=== PATIENT | female | born 1995 | race African-American/Black ===

== ENCOUNTER 2016-12-17 18:38 | Emergency (ER) | payer OTHER ==
[2016-12-17 19:10] VITALS: BP 113/71; PULSE 84; TEMP 98.2; BMI 35.2
--- NOTE | 2016-12-17 19:31 | PDOC ---
History of Present Illness - General Chief Complaint: Back Pain Stated Complaint: BACK PAIN Time Seen by Provider: 12/17/16 19:27 History Source: Patient Exam Limitations: No Limitations - History of Present Illness Initial Comments: CHIEF COMPLAINT: 21 y/o morbidly obese female c/o right sided back pain since yesterday. HISTORY OF PRESENT ILLNESS: The patient states the pain travels from her low back down into her right leg. She has had this before and took flexeril once yesterday and once today. She denies fall, trauma to back, midline back pain, heavy lifting, bowel/bladder incontinence, numbness/tingling in extremities. Vital signs on arrival are within normal limits. REVIEW OF SYSTEMS: GENERAL/CONSTITUTIONAL: No fever/chills. No weakness. No weight change. GASTROINTESTINAL: No abd pain, nausea, vomiting, diarrhea. GENITOURINARY: No dysuria, frequency, or change in urination. MUSCULOSKELETAL: No joint or muscle swelling or pain. No neck pain. +low back pain radiating into leg. SKIN: No rash or easy bruising. NEUROLOGIC: No headache, vertigo, loss of consciousness, or loss of sensation. PHYSICAL EXAM: GENERAL: The patient is awake, alert, and fully oriented, in no acute distress. She is morbidly obese and ambulatory with normal gait. Her movements are slowed secondary to pain. ABDOMEN: Soft, non-distended, non-tender even to deep palpation, no hepatomegaly or splenomegaly, no masses. BACK: No midline lumbar spine TTP or step offs. Pain reproduced with palpation of right lumbar paravertebral muscles, as well as with palpation of right gluteal muscles. EXTREMITIES: Normal range of motion, no edema. NEUROLOGICAL: Normal speech, normal gait. CN II-XII grossly intact. No saddle anesthesia. 2+ LE reflexes b/l. SKIN: Warm, dry, normal turgor, no rashes or lesions noted. Past History - Past Medical History Allergies/Adverse Reactions: Allergies Allergy/AdvReac Type Severity Reaction Status Date / Time No Known Allergies Allergy Verified 12/17/16 19:02 Home Medications: Ambulatory Orders Topiramate [Topamax -] 50 mg PO HS 07/25/15 Albuterol 0.083% Nebulizer Kira [Ventolin 0.083% Nebulizer Soln -] 1 neb NEB Q4H PRN #1 vial 09/03/15 Albuterol Sulfate Inhaler - [Ventolin HFA Inhaler -] 2 inh PO Q4H PRN #1 inhaler 09/03/15 Prednisone [Deltasone] 20 mg PO BID #8 tablet 09/03/15 Azithromycin [Zithromax Z-JAKI (5 DAYS) -] 250 mg PO ASDIR #6 tablet 09/04/15 Asthma: No Cancer: No Cardiac Disorders: No Diabetes: No HTN: No Seizures: No Thyroid Disease: No - Psycho/Social/Smoking Cessation Hx Anxiety: No Suicidal Ideation: No Smoking History: Never smoked Have you smoked in the past 12 months: No Information on smoking cessation initiated: No Hx Alcohol Use: No Drug/Substance Use Hx: No Hx Substance Use Treatment: No *Physical Exam - Vital Signs Last Vital Signs Temp Pulse Resp BP Pulse Ox 98.2 F 84 14 113/71 100 12/17/16 19:02 12/17/16 19:02 12/17/16 19:02 12/17/16 19:02 12/17/16 19:02 Medical Decision Making - Medical Decision Making A/P: 21 y/o female with right sided sciatica. Encouraged the patient to take 800mg of Motrin with her flexeril every 8 hours. Informed her the flexeril may cause her to be drowsy. Demonstrated a few stretching exercises she should do hourly at home to help with her pain. Suggested she apply heat and massage to the affected area and f/u with her doctor within 1 week. The patient was instructed to return to the ER with any worsening or concerning symptoms. The patient verbalizes understanding of all instructions, has no further questions and is awaiting discharge. *DC/Admit/Observation/Transfer Diagnosis at time of Disposition: Sciatica of right side - Referrals Referrals: Morgan Freeman [Primary Care Provider] - - Patient Instructions Printed Discharge Instructions: DI for Back Pain With Sciatica Additional Instructions: Discharge Instructions: -Take 800mg of Motrin along with your flexeril every 8 hours -Flexeril may cause drowsiness -Perform hourly stretches and massage to affected area -Apply heating pad to the affected area -Follow up with your doctor within 1 month -Return to the ER with any worsening or concerning symptoms
== END 2016-12-17 20:02 | disposition home or self-care (01) ==
LOC: JER 18:38 → JERFT 18:38
DX: M54.31 Sciatica, right side (principal); E66.01 Morbid (severe) obesity due to excess calories; Z68.35 Body mass index [BMI] 35.0-35.9, adult
CPT/HCPCS: 99281-25

== ENCOUNTER 2017-03-14 18:28 | Emergency (ER) | payer OTHER ==
[2017-03-14 18:38] VITALS: BP 121/72; PULSE 66; TEMP 97.7; BMI 43.0
--- NOTE | 2017-03-14 19:13 | PDOC ---
History of Present Illness - General Chief Complaint: Back Pain Stated Complaint: PAIN/NAUSEA Time Seen by Provider: 03/14/17 19:09 History Source: Patient Exam Limitations: No Limitations - History of Present Illness Initial Comments: 03/14/17 19:48 My chief complaint: Generalized body aches and nausea History of present illness: Patient is a 21-year-old female with a history of back pain patient which she has been receiving physical therapy twice a week for 2-3 months here today complaining of lower back pain presently. Patient reports taking ibuprofen 11 AM and cyclobenzaprine at 11 AM today. Patient also reports having generalized body aches and nausea 2 days. Patient presently has her menstrual cycle and has an IUD. Patient reports that her son currently being treated for strep throat. Patient denies any sore throat presently has had decreased appetite 2 weeks with nausea for 2 days. Patient denies any dysuria, frequency, urgency, or any vaginal discharge. Patient reports that due to having an IUD she gets her menstrual cycle more frequently than usual. Patient has not been sexually active for over one month. Patient denies any radiation of pain from back down her legs or any saddle anesthesia or any incontinency. 03/14/17 19:55 03/14/17 19:56 Timing/Duration: getting worse Severity: moderate Associated Symptoms: reports: fever/chills (CHILLS, ), nausea/vomiting (NAUSEA ) , other (BACK PAIN LOWER) Past History - Past Medical History Allergies/Adverse Reactions: Allergies Allergy/AdvReac Type Severity Reaction Status Date / Time No Known Allergies Allergy Verified 12/17/16 19:02 Home Medications: Ambulatory Orders Amoxicillin - [Amoxicillin 500mg Capsule -] 500 mg PO TID #30 capsule 03/14/17 NK [No Known Home Medication] 03/14/17 Asthma: No Cancer: No Cardiac Disorders: No Diabetes: No HTN: No Seizures: No Thyroid Disease: No - Immunization History Immunization Up to Date: Yes - Psycho/Social/Smoking Cessation Hx Anxiety: No Suicidal Ideation: No Smoking History: Never smoked Have you smoked in the past 12 months: No Information on smoking cessation initiated: No Hx Alcohol Use: No Drug/Substance Use Hx: No Substance Use Type: None Hx Substance Use Treatment: No Review of Systems - Review of Systems Able to Perform ROS?: Yes Constitutional: Yes: Chills, Loss of Appetite HEENTM: No: Symptoms Reported Respiratory: No: Symptoms reported Cardiac (ROS): No: Symptoms Reported ABD/GI: Yes: Nausea, Poor Appetite. No: Abd. Pain w/ defecation, Blood Streaked Bowels, Constipated, Diarrhea, Difficulty Swallowing, Poor Fluid Intake , Rectal Bleeding, Vomiting, Indigestion, Abdominal cramping, Tarry Stools : No: Symptoms Reported Musculoskeletal: Yes: Back Pain (LOWER B/L W/O RADIATION OF PAIN DOWN LEGS) Integumentary: No: Symptoms Reported Neurological: No: Symptoms reported *Physical Exam - Vital Signs Last Vital Signs Temp Pulse Resp BP Pulse Ox 97.7 F 66 17 121/72 100 03/14/17 18:33 03/14/17 18:33 03/14/17 18:33 03/14/17 18:33 03/14/17 18:33 - Physical Exam General Appearance: Yes: Appropriately Dressed HEENT: positive: TMs Normal, Pharyngeal Erythema. negative: Tonsillar Exudate, Tonsillar Erythema, Nasal Congestion, Rhinorrhea, Sinus Tenderness Neck: negative: Lymphadenopathy (R), Lymphadenopathy (L) Respiratory/Chest: positive: Lungs Clear, Normal Breath Sounds. negative: Chest Tender, Respiratory Distress Cardiovascular: positive: Regular Rhythm, Regular Rate, S1, S2 Gastrointestinal/Abdominal: positive: Normal Bowel Sounds, Soft. negative: Tender, Organomegaly, Distended, Guarding, Rebound, Tenderness, Hepatomegaly, Spleenomegaly Musculoskeletal: positive: Normal Inspection, Other (B/L PARASPINAL MUSCLE TENDERNESS). negative: CVA Tenderness, CVA Tenderness (R), CVA Tenderness (L), Decreased Range of Motion, Vertebral Tenderness Extremity: positive: Normal Capillary Refill, Normal Inspection, Normal Range of Motion Integumentary: positive: Normal Color Neurologic: positive: Alert, Normal Response, Motor Strength 5/5 (LEGS ), Respond to painful stimul (LEGS), Responsive. negative: Numbness, Sensory Deficit Deep Tendon Reflexes: Knee (L): 4+, Knee (R): 4+ Medical Decision Making - Medical Decision Making Patient is a 21-year-old female with a history of back pain patient which she has been receiving physical therapy twice a week for 2-3 months here today complaining of generalized back pain presently. Patient reports taking ibuprofen 11 AM and cyclobenzaprine at 11 AM today. Patient also reports having generalized body aches and nausea 2 days. Patient presently has her menstrual cycle and has an IUD. Patient reports that her son currently being treated for strep throat. Patient denies any sore throat presently has had decreased appetite 2 weeks with nausea for 2 days. Patient denies any dysuria, frequency , urgency, or any vaginal discharge. Patient reports that due to having an IUD she gets her menstrual cycle more frequently than usual. Patient has not been sexually active for over one month. Patient denies any radiation of pain from back down her legs or any saddle anesthesia or any incontinency. STREP THROAT EXPOSURE Pharyngitis rule out strep Generalized body aches Lower back pain bilaterally PLAN: U/A URINE HCG NEGATIVE toradol 60 mg IM now naprosyn 500 mg bid prn pain # 14 tabs THROAT C & S negative based on exposure to strep throat will try with amoxicillin 875 m g bid for 10 days 03/14/17 19:46 Laboratory Tests 03/14/17 18:56 Urine Color Yellow Urine Appearance Slcloudy Urine pH 5.0 D Ur Specific [place] Pending Urine Protein 1+ H Urine Glucose (UA) Negative Urine Ketones Negative Urine Blood 2+ H Urine Nitrite Negative Urine Bilirubin Negative Urine Urobilinogen Negative Ur Leukocyte Esterase Negative Urine RBC 17 Urine WBC 3 Ur Epithelial Cells Few Urine Mucus Moderate Urine HCG, Qual Negative 03/14/17 19:51 03/14/17 19:55 03/14/17 21:10 *DC/Admit/Observation/Transfer Diagnosis at time of Disposition: Exposure to strep throat Low back pain Qualifiers: Back pain laterality: bilateral Sciatica presence: without sciatica - Discharge Dispostion Disposition: HOME Condition at time of disposition: Stable - Patient Instructions Additional Instructions: Follow-up with your primary care provider within the next few days Return to emergency room if symptoms worsen any numbness of legs or groin area or new symptoms develop Follow-up with your orthopedist as soon as possible for further evaluation Take ibuprofen as needed as directed by [employer] architect for pain Drink a lot of fluids and rest Patient voiced understanding of discharge instructions and all questions were answered
[2017-03-14 19:27] LABS: URINE APPEARANCE SLCLOUDY; URINE BILIRUBIN NEGATIVE (NEGATIVE); URINE BLOOD 2+ (NEGATIVE); URINE COLOR YELLOW; URINE GLUCOSE (UA) NEGATIVE (NEGATIVE); URINE KETONE NEGATIVE (NEGATIVE); URINE LEUK ESTERASE NEGATIVE (NEGATIVE); URINE NITRITE NEGATIVE (NEGATIVE); URINE UROBILINOGEN NEGATIVE mg/dL (0.2-1.0)
[2017-03-14 19:37] LABS: URINE PROTEIN 1+ (NEGATIVE)
[2017-03-14 19:39] LABS: URINE MUCUS MODERATE; URINE RBC 17 /hpf (0-3); URINE WBC 3 /hpf (3-5)
[2017-03-14] MEDS ORDERED: KETOROLAC TROMETHAMINE 60 MG/2 ML VIAL IM ONE (20:39)
== END 2017-03-14 21:21 | disposition home or self-care (01) ==
LOC: JERFT 18:28
PROC: 3E0233Z Introduction of Anti-inflammatory into Muscle, Percutaneous Approach (ICD-10-PCS; principal; 2017-03-14)
DX: J02.0 Streptococcal pharyngitis (principal)
CPT/HCPCS: 81003; 81015; 84703; 87070; 87077; 87086; 87430; 96372; 99281-25

== ENCOUNTER 2020-12-31 10:45 | Emergency (ER) | payer OTHER ==
[2020-12-31 10:50] VITALS: BP 107/73; PULSE 87; TEMP 98.2; BMI 49.3
== END 2020-12-31 12:07 | disposition home or self-care (01) ==
LOC: JER 10:45
DX: R07.9 Chest pain, unspecified (principal)
CPT/HCPCS: 71046-TC-FY; 93005; 93010; 99284-25

== ENCOUNTER 2022-04-15 15:59 | Emergency (ER) | payer OTHER ==
[2022-04-15 16:33] VITALS: BP 95/45; PULSE 77; RESP 16; TEMP 98.1; BMI 31.7
[2022-04-15] MEDS ORDERED: ACETAMINOPHEN 500 MG TABLET (FP) PO ONE (17:26)
[2022-04-15] MEDS ORDERED: DEXAMETHASONE LIQUID 0.5 MG/5 ML PO ONE (17:26)
[2022-04-15] MEDS ORDERED: ACETAMINOPHEN 325 MG TABLET (FP) ONE (18:39)
[2022-04-15] MEDS ORDERED: DEXAMETHASONE SOD PHOSPHATE 10 MG/1 ML VIAL ONE (18:39)
== END 2022-04-15 19:00 | disposition home or self-care (01) ==
LOC: JER 15:59
DX: R07.0 Pain in throat (principal)
CPT/HCPCS: 87651; 99283-25; C9803-CS; U0003; U0005

== ENCOUNTER 2022-04-17 11:15 | Emergency (ER) | payer OTHER ==
[2022-04-17 11:43] VITALS: TEMP 98.6; BMI 31.4
[2022-04-17] MEDS ORDERED: SODIUM CHLORIDE 0.9% 500 ML INFUS.BAG IV ONE (12:45)
[2022-04-17] MEDS ORDERED: ACETAMINOPHEN 1000 MG/100 ML BAG IVPB ONE (12:45)
[2022-04-17] MEDS ORDERED: ACETAMINOPHEN INJECTION 100 ML IVPB ONE (13:46)
[2022-04-17 14:43] LABS: BASO % 0.4 % (0-2.0); EOS % 1.1 % (0-4.5); HEMATOCRIT 32.4 % (32.4-45.2); HEMOGLOBIN 10.7 GM/dL (10.7-15.3); LYMPH % 38.6 % (8-40); MCH 28.5 pg (25.7-33.7); MCHC 32.9 g/dl (32.0-36.0); MEAN CELL VOLUME 86.4 fl (80-96); MEAN PLT VOLUME 8.5 fl (7.5-11.1); NEUT % 52.9 % (42.8-82.8); PLATELET COUNT 185 10^3/uL (134-434); RBC 3.75 M/mm3 (3.60-5.2); RDW 13.8 % (11.6-15.6); WHITE BLOOD COUNT 6.5 K/mm3 (4.0-10.0)
[2022-04-17 14:45] LABS: URINE APPEARANCE CLOUDY; URINE BILIRUBIN NEGATIVE (NEGATIVE); URINE COLOR YELLOW; URINE GLUCOSE (UA) NEGATIVE (NEGATIVE); URINE KETONE TRACE (NEGATIVE); URINE LEUK ESTERASE NEGATIVE (NEGATIVE); URINE NITRITE NEGATIVE (NEGATIVE); URINE PROTEIN TRACE (NEGATIVE)
[2022-04-17 15:11] LABS: CALCIUM 9.2 mg/dL (8.5-10.1)
[2022-04-17 15:12] LABS: ALBUMIN 3.4 g/dl (3.4-5.0); BLOOD UREA NITROGEN 10.4 mg/dL (7-18)
[2022-04-17 15:15] LABS: CREATININE 0.6 mg/dL (0.55-1.3)
[2022-04-17 15:17] LABS: BILIRUBIN,TOTAL 0.2 mg/dL (0.2-1)
[2022-04-17 15:41] VITALS: BP 134/66; PULSE 73; RESP 20
== END 2022-04-17 15:42 | disposition home or self-care (01) ==
LOC: JER 11:15
PROC: 3E033GC Introduction of Other Therapeutic Substance into Peripheral Vein, Percutaneous Approach (ICD-10-PCS; principal; 2022-04-17)
DX: B34.9 Viral infection, unspecified (principal)
CPT/HCPCS: 0241U-QW; 36415; 80053; 81003; 85025; 87086; 99284-25

== ENCOUNTER 2022-07-07 12:03 | Emergency (ER) | payer OTHER ==
[2022-07-07 13:01] VITALS: BP 106/71; PULSE 90; RESP 18; TEMP 98.2; BMI 30.4
[2022-07-07] MEDS ORDERED: KETOROLAC TROMETHAMINE 30 MG/1 ML VIAL IM ONE (13:52)
[2022-07-07] MEDS ORDERED: LIDOCAINE 5% TOPICAL PATCH TP ONE (13:53)
[2022-07-07] MEDS ORDERED: LIDOCAINE 5% TOPICAL PATCH ONE (13:56)
[2022-07-07] MEDS ORDERED: KETOROLAC TROMETHAMINE 30 MG/1 ML VIAL ONE (13:56)
[2022-07-07] MEDS ORDERED: LIDOCAINE PATCH REMOVAL MC ONE (22:00)
== END 2022-07-07 15:12 | disposition home or self-care (01) ==
LOC: JER 12:03 → JERFT 12:03
PROC: 3E023GC Introduction of Other Therapeutic Substance into Muscle, Percutaneous Approach (ICD-10-PCS; principal; 2022-07-07)
DX: R07.89 Other chest pain (principal); M54.2 Cervicalgia; M54.89 Other dorsalgia; W01.0XXA Fall on same level from slipping, tripping and stumbling without subsequent striking against object, initial encounter
CPT/HCPCS: 71046-TC-FY; 72100-TC-FY; 99284-25

== ENCOUNTER 2023-02-16 07:36 | Emergency (ER) | payer OTHER ==
[2023-02-16 07:46] VITALS: BP 104/64; PULSE 62; RESP 18; TEMP 98.4; BMI 27.2
[2023-02-16 08:47] LABS: BASO % 0.2 % (0-2.0); EOS % 0.6 % (0-4.5); HEMATOCRIT 32.7 % (32.4-45.2); LYMPH % 20.6 % (8-40); MCH 28.5 pg (25.7-33.7); MCHC 33.6 g/dl (32.0-36.0); MEAN CELL VOLUME 84.9 fl (80-96); MEAN PLT VOLUME 8.3 fl (7.5-11.1); NEUT % 71.6 % (42.8-82.8); PLATELET COUNT 175 10^3/uL (134-434); RBC 3.85 M/mm3 (3.60-5.2); RDW 13.7 % (11.6-15.6); WHITE BLOOD COUNT 6.3 K/mm3 (4.0-10.0)
[2023-02-16 08:58] LABS: EPI CELLS 32 /uL (0-25.1); HYALINE CASTS 1 /uL (0-3.1); URINE APPEARANCE CLEAR; URINE BACTERIA 66 /uL (0-1359); URINE BILIRUBIN NEGATIVE (NEGATIVE); URINE COLOR YELLOW; URINE GLUCOSE (UA) NEGATIVE (NEGATIVE); URINE KETONE 1+ (NEGATIVE); URINE LEUK ESTERASE 1+ (NEGATIVE); URINE NITRITE NEGATIVE (NEGATIVE); URINE PROTEIN TRACE (NEGATIVE); URINE RBC 2007 /uL (0-23.9); URINE WBC 21 /uL (0-25.8)
[2023-02-16] MEDS ORDERED: KETOROLAC TROMETHAMINE 15 MG/ML VIAL IVPUSH ONE (09:01)
[2023-02-16 09:02] LABS: POTASSIUM 3.5 mmol/L (3.5-5.1)
[2023-02-16 09:04] LABS: CALCIUM 8.6 mg/dL (8.5-10.1)
[2023-02-16 09:05] LABS: ALBUMIN 3.3 g/dl (3.4-5.0); BLOOD UREA NITROGEN 6.8 mg/dL (7-18)
[2023-02-16 09:08] LABS: CREATININE 0.4 mg/dL (0.55-1.3)
[2023-02-16 09:09] LABS: BILIRUBIN,TOTAL 0.5 mg/dL (0.2-1); TOT PROT 6.7 g/dl (6.4-8.2)
[2023-02-16] MEDS ORDERED: KETOROLAC TROMETHAMINE 15 MG/ML VIAL ONE (09:10)
[2023-02-16] MEDS ORDERED: SODIUM CHLORIDE 0.9% 500 ML INFUS.BAG IV ONE (10:16)
[2023-02-16] MEDS ORDERED: ACETAMINOPHEN 1000 MG/100 ML BAG IVPB ONE (11:49)
[2023-02-16] MEDS ORDERED: ACETAMINOPHEN INJECTION 100 ML IVPB ONE (11:52)
== END 2023-02-16 13:06 | disposition home or self-care (01) ==
LOC: JER 07:36
PROC: 3E033NZ Introduction of Analgesics, Hypnotics, Sedatives into Peripheral Vein, Percutaneous Approach (ICD-10-PCS; principal; 2023-02-16)
PROC: 3E033GC Introduction of Other Therapeutic Substance into Peripheral Vein, Percutaneous Approach (ICD-10-PCS; 2023-02-16)
DX: N39.0 Urinary tract infection, site not specified (principal); R10.2 Pelvic and perineal pain
CPT/HCPCS: 36415; 76830-TC; 80053; 81003; 84703; 85025; 86850; 86900; 86901; 87086; 99284-25

== ENCOUNTER 2024-02-23 15:16 | Emergency (ER) | payer OTHER ==
[2024-02-23 15:20] VITALS: BP 103/72; PULSE 88; RESP 18; BMI 32.7
[2024-02-23 15:23] VITALS: TEMP 97.8
[2024-02-23 17:14] LABS: URINE APPEARANCE CLEAR; URINE BILIRUBIN NEGATIVE (NEGATIVE); URINE COLOR YELLOW; URINE GLUCOSE (UA) NEGATIVE (NEGATIVE); URINE KETONE NEGATIVE (NEGATIVE); URINE LEUK ESTERASE NEGATIVE (NEGATIVE); URINE NITRITE NEGATIVE (NEGATIVE); URINE PROTEIN NEGATIVE (NEGATIVE)
[2024-02-23 17:18] LABS: HCG,QUALITATIVE URINE Negative
[2024-02-23] MEDS ORDERED: KETOROLAC TROMETHAMINE 30 MG/1 ML VIAL ONE (17:45)
[2024-02-23] MEDS ORDERED: METOCLOPRAMIDE HCL INJECTION 10 MG/2 ML VIAL ONE (17:45)
[2024-02-23] MEDS: SODIUM CHLORIDE 0.9% 500 ML INFUS.BAG IV ONE (17:55)
[2024-02-23] MEDS: KETOROLAC TROMETHAMINE 30 MG/1 ML VIAL IVPUSH ONE (17:56)
[2024-02-23] MEDS: METOCLOPRAMIDE HCL INJECTION 10 MG/2 ML VIAL IVPB ONE (17:56)
[2024-02-23 18:06] LABS: BASO % 0.2 % (0-2.0); EOS % 1.5 % (0-4.5); HEMATOCRIT 33.1 % (32.4-45.2); LYMPH % 40.6 % (8-40); MCH 28.3 pg (25.7-33.7); MCHC 33.3 g/dl (32.0-36.0); MEAN CELL VOLUME 84.9 fl (80-96); MEAN PLT VOLUME 8.6 fl (7.5-11.1); MONO % 7.3 % (3.8-10.2); NEUT % 50.4 % (42.8-82.8); PLATELET COUNT 205 10^3/uL (134-434); RBC 3.89 M/mm3 (3.60-5.2); RDW 14.4 % (11.6-15.6); WHITE BLOOD COUNT 5.9 K/mm3 (4.0-10.0)
[2024-02-23 18:25] LABS: POTASSIUM 4.1 mmol/L (3.5-5.1)
[2024-02-23 18:26] LABS: ALBUMIN 3.5 g/dl (3.4-5.0); CALCIUM 8.5 mg/dL (8.5-10.1)
[2024-02-23 18:27] LABS: BLOOD UREA NITROGEN 7.8 mg/dL (7-18)
[2024-02-23 18:29] LABS: CREATININE 0.5 mg/dL (0.55-1.3)
[2024-02-23 18:31] LABS: BILIRUBIN,TOTAL 0.3 mg/dL (0.2-1); TOT PROT 7.5 g/dl (6.4-8.2)
== END 2024-02-23 20:03 | disposition home or self-care (01) ==
LOC: JERFT 15:16
PROC: 3E0333Z Introduction of Anti-inflammatory into Peripheral Vein, Percutaneous Approach (ICD-10-PCS; principal; 2024-02-23)
PROC: 3E033GC Introduction of Other Therapeutic Substance into Peripheral Vein, Percutaneous Approach (ICD-10-PCS; 2024-02-23)
DX: R51.9 Headache, unspecified (principal); R42 Dizziness and giddiness; R53.1 Weakness; Z20.822 Contact with and (suspected) exposure to COVID-19
CPT/HCPCS: 0241U-QW; 36415; 80053; 81003; 84703; 85025; 87086; 99284-25